=== PATIENT | female | born 1985 | race Asian ===

== ENCOUNTER 2017-03-22 12:46 | Emergency (ER) | payer MEDICAID ==
[~2017-03-22] VITALS: Ht 162.6 cm; Wt 59.0 kg
[2017-03-22 13:00] VITALS: BP 132/54
== END 2017-03-22 17:57 | disposition left against medical advice (07) ==
LOC: ER 12:46
DX: Z53.21 Procedure and treatment not carried out due to patient leaving prior to being seen by health care provider (principal)

== ENCOUNTER 2017-09-12 04:05 | Observation (INO) | payer OTHER, MEDICAID ==
[~2017-09-12] VITALS: Ht 162.6 cm; Wt 69.9 kg
[2017-09-12] MEDS ORDERED: IBUPROFEN 800MG TABLET PO PRN (07:15)
[2017-09-12] MEDS ORDERED: IBUPROFEN 400MG TABLET PO PRN (07:15)
[2017-09-12] MEDS ORDERED: RHO(D) IMMUNE GLOBULIN 300 MCG/SYR IM PRN (07:15)
[2017-09-12] MEDS ORDERED: LANOLIN OINT 0.25 GM TUBE TOP PRN (07:15)
[2017-09-12] MEDS ORDERED: DEXT 5%/LR + PITOCIN 20UNITS/L 1,000 ML IV SCH (07:15)
[2017-09-12] MEDS ORDERED: METHYLERGONOVINE MALEATE 0.2 MG/ML IM PRN (07:30)
[2017-09-12] MEDS ORDERED: PRENATAL VIT/FE FUMARATE/FA TABLET PO SCH (09:00)
[2017-09-12] MEDS ORDERED: PNV1TABL76 MT (23:49)
== END 2017-09-12 07:45 | disposition home or self-care (01) ==
LOC: L&D 04:05
PROVIDERS: ADMIT Specialist; ATTEND Specialist
DX: O46.93 Antepartum hemorrhage, unspecified, third trimester (principal); Z3A.39 39 weeks gestation of pregnancy
CPT/HCPCS: 76815; 76818; 99281; G0378

== ENCOUNTER 2017-09-12 23:02 | Inpatient (IN) | payer OTHER, MEDICAID ==
[~2017-09-12] VITALS: Ht 162.6 cm; Wt 68.9 kg
[2017-09-12] MEDS ORDERED: DEXT 5%/LR + PITOCIN 20UNITS/L 1,000 ML IV SCH (23:49)
[2017-09-12] MEDS ORDERED: PNV1TABL76 MT (23:49)
[2017-09-13] MEDS ORDERED: METHYLERGONOVINE MALEATE 0.2 MG/ML IM PRN
[2017-09-13] MEDS ORDERED: LIDOCAINE HCL 1% 20ML VIAL (Pyxis) INJ INFIL SCH
[2017-09-13] MEDS ORDERED: PENICILLIN G POTASSIUM 5 MMU in DEXT 5% WATER 100 ML IV SCH ×2
[2017-09-13] MEDS ORDERED: MISOPROSTOL 100MCG TABLET VG SCH
[2017-09-13] MEDS ORDERED: CARBOPROST TROMETHAMINE 250 MCG/ML AMPUL IM PRN
[2017-09-13] MEDS ORDERED: NALOXONE HCL 0.4 MG/ML 1ML VIAL IM PRN
[2017-09-13] MEDS ORDERED: BUTORPHANOL TARTRATE 2 MG/ML VIAL IV PRN
[2017-09-13] MEDS: LACTATED RINGERS 1,000 ML IV SCH ×2 (01:05→05:20)
[2017-09-13 01:30] LABS: BASOPHILS % 0.4 % (0.0-2.0); CLARITY URINE TURBID (CLEAR); COLOR URINE YELLOW (YELLOW); EOSINOPHILS % 4.1 % (0.0-5.0); HEMATOCRIT. 37.4 % (36.0-48.0); HEMOGLOBIN. 12.6 g/dL (12.0-16.0); KETONES URINE NEGATIVE (NEGATIVE); LEUKOCYTE ESTERASE URINE TRACE (NEGATIVE); LYMPHOCYTES % 18.5 % (20.0-50.0); MEAN CORPUSCULAR HEMOGLOBIN 29.8 pg (28.0-32.0); MEAN CORPUSCULAR VOLUME 88.4 fL (81.0-99.0); MEAN PLATELET VOLUME 7.9 fl (7.4-10.4); MONOCYTES % 7.2 % (2.0-8.0); NEUTROPHILS % 69.8 % (40.0-76.0); NITRITE URINE NEGATIVE (NEGATIVE); OCCULT BLOOD URINE 3+ (NEGATIVE); PLATELET 307 x1000/uL (130-400); PROTEIN URINE 1+ (NEGATIVE); RED BLOOD CELL COUNT 4.23 mill/uL (4.2-5.4); RED CELL DISTRIBUTION WIDTH 14.5 % (11.6-14.6); SPECIFIC GRAVITY URINE 1.008 (1.005-1.030); UROBILINOGEN URINE 0.2 E.U./dL (0.2-1.0)
[2017-09-13 01:41] LABS: INR 0.9; PARTIAL THROMBOPLASTIN TIME 25.7 sec (23.4-31.0); PROTHROMBIN TIME 9.1 sec (9.4-11.6)
[2017-09-13 01:42] LABS: *AMPHETAMINES SCREEN URINE NEGATIVE (NEGATIVE); *BARBITURATES SCREEN URINE NEGATIVE (NEGATIVE); *BENZODIAZEPINES SCREEN URINE NEGATIVE (NEGATIVE); *COCAINE SCREEN URINE NEGATIVE (NEGATIVE); METHADONE URINE SCREEN NEGATIVE (NEGATIVE); OPIATES URINE SCREEN NEGATIVE (NEGATIVE); PHENCYCLIDINE URINE SCREEN NEGATIVE (NEGATIVE)
[2017-09-13 01:43] LABS: CANNABINOID URINE SCREEN NEGATIVE (NEGATIVE)
[2017-09-13 02:36] LABS: RUBELLA IGG 82.8 IU/mL (4.99-10)
[2017-09-13 02:37] LABS: HEPATITIS B SURFACE ANTIGEN NEGATIVE
[2017-09-13] MEDS: PENICILLIN G POTASSIUM 2.5 MMU in DEXTROSE 5% WATER 50 ML IV SCH ×2 (05:27→09:27)
[2017-09-13] MEDS ORDERED: MORPHINE SULFATE/PF 1MG/ML 10ML AMP ONE (10:16)
[2017-09-13] MEDS ORDERED: OXYTOCIN 10 UNITS/ML 1ML ONE (10:37)
[2017-09-13] MEDS ORDERED: LANOLIN OINT 0.25 GM TUBE TOP PRN (11:15)
[2017-09-13] MEDS ORDERED: IBUPROFEN 400MG TABLET PO PRN (11:15)
[2017-09-13] MEDS ORDERED: INFLUENZA VIRUS VACCINE 0.5ML SYR IM ONE (11:15)
[2017-09-13] MEDS ORDERED: HYDROCODONE/ACETAMINOPHEN 5/325MG TABLET PO PRN (11:15)
[2017-09-13] MEDS ORDERED: TETANUS, DIPHTHERIA, PERTUSSIS VAC/PF 0.5ML (>7YR OLD) IM ONE (11:15)
[2017-09-13] MEDS ORDERED: DIPHENHYDRAMINE 25MG CAPSULE PO PRN (11:15)
[2017-09-13] MEDS ORDERED: BISACODYL 10MG SUPP PR PRN (11:15)
[2017-09-13 11:30] LABS: BG FRACTION INSPIRED OXYGEN 21; BG PCO2 75.3 mmHg (35.0-45.0); BG PH 7.232 (7.350-7.450); BG SAMPLE SITE CORD; BG VENT MODE cprd - UA
[2017-09-13 11:32] LABS: BG BASE EXCESS 0.2 mmol/L (-2.0-2.0); BG FRACTION INSPIRED OXYGEN 21; BG HCO3 ACT 27.2 mmol/L (22.0-26.0); BG PCO2 53.2 mmHg (35.0-45.0); BG PH 7.326 (7.350-7.450); BG PO2 < 30.3 mmHg (75.0-100.0); BG SAMPLE SITE CORD; BG VENT MODE CORD - UV
[2017-09-13] MEDS: ONDANSETRON HCL 4MG/2ML VIAL IV PRN (12:06)
[2017-09-13] MEDS: SIMETHICONE 80MG TABLET CHEW PO SCH ×3 (12:40→21:00)
[2017-09-13 14:30] VITALS: BP 116/70
[2017-09-13 19:15] VITALS: BP 121/69
[2017-09-13] MEDS ORDERED: KETOROLAC 30MG/ML VIAL IV PRN (19:30)
[2017-09-13] MEDS: DOCUSATE SODIUM 100MG CAPSULE PO SCH (21:00)
[2017-09-13 23:30] VITALS: BP 108/70
[2017-09-13] MEDS ORDERED: DEXT 5%/LR + PITOCIN 20UNITS/L 1,000 ML IV SCH (23:50)
[2017-09-14 05:00] VITALS: BP 108/61
[2017-09-14] MEDS: ONDANSETRON HCL 4MG/2ML VIAL IV PRN (05:26)
[2017-09-14 08:23] LABS: BASOPHILS % 0.1 % (0.0-2.0); EOSINOPHILS % 0.3 % (0.0-5.0); HEMATOCRIT. 34.2 % (36.0-48.0); HEMOGLOBIN. 11.3 g/dL (12.0-16.0); LYMPHOCYTES % 12.9 % (20.0-50.0); MEAN CORPUSCULAR HEMOGLOBIN 29.6 pg (28.0-32.0); MEAN CORPUSCULAR VOLUME 89.5 fL (81.0-99.0); MEAN PLATELET VOLUME 7.7 fl (7.4-10.4); MONOCYTES % 8.3 % (2.0-8.0); NEUTROPHILS % 78.4 % (40.0-76.0); PLATELET 281 x1000/uL (130-400); RED BLOOD CELL COUNT 3.82 mill/uL (4.2-5.4); RED CELL DISTRIBUTION WIDTH 14.1 % (11.6-14.6)
[2017-09-14] MEDS: FERROUS SULFATE 325MG TABLET PO SCH ×2 (13:00→17:00)
[2017-09-14 16:00] VITALS: BP 126/80
[2017-09-14 20:00] VITALS: BP 130/83
[2017-09-14] MEDS: DOCUSATE SODIUM 100MG CAPSULE PO SCH (20:58)
[2017-09-14] MEDS: SIMETHICONE 80MG TABLET CHEW PO SCH (20:59)
[2017-09-14] MEDS: HYDROCODONE/ACETAMINOPHEN 5/325MG TABLET PO PRN (21:00)
[2017-09-15] VITALS: BP 118/73
[2017-09-15 04:05] VITALS: BP 134/78
[2017-09-15 08:00] VITALS: BP 125/85
[2017-09-15] MEDS: FERROUS SULFATE 325MG TABLET PO SCH ×3 (09:00→15:32)
[2017-09-15] MEDS: PRENATAL VIT/FE FUMARATE/FA TABLET PO SCH (15:17)
[2017-09-15] MEDS: SIMETHICONE 80MG TABLET CHEW PO SCH ×3 (15:17→21:47)
[2017-09-15] MEDS: HYDROCODONE/ACETAMINOPHEN 5/325MG TABLET PO PRN ×2 (16:35→21:47)
[2017-09-15 20:00] VITALS: BP 123/84
[2017-09-15] MEDS: DOCUSATE SODIUM 100MG CAPSULE PO SCH (21:47)
[2017-09-16] VITALS: BP 122/83
[2017-09-16 05:00] VITALS: BP 128/88
[2017-09-16 08:00] VITALS: BP 108/63
[2017-09-16] MEDS: PRENATAL VIT/FE FUMARATE/FA TABLET PO SCH ×2 (09:00→10:28)
[2017-09-16] MEDS: SIMETHICONE 80MG TABLET CHEW PO SCH (10:28)
[2017-09-16] MEDS: FERROUS SULFATE 325MG TABLET PO SCH (10:28)
== END 2017-09-16 11:20 | disposition home or self-care (01) | DRG 766 ==
LOC: L&D 23:02 → OBSVTOIN 23:02 → 7EST PP/OB 09-13 14:25
PROVIDERS: ADMIT Specialist; ATTEND Specialist
PROC: 10D00Z1 Extraction of Products of Conception, Low, Open Approach (ICD-10-PCS; principal; 2017-09-13 11:05)
DX: O69.1XX0 Labor and delivery complicated by cord around neck, with compression, not applicable or unspecified (principal); O76 Abnormality in fetal heart rate and rhythm complicating labor and delivery; O77.0 Labor and delivery complicated by meconium in amniotic fluid; Z37.0 Single live birth; Z3A.39 39 weeks gestation of pregnancy; Z91.013 Allergy to seafood
CPT/HCPCS: 36415; 36600; 80305; 81003; 82805; 85025; 85610; 85730; 86592; 86703; 86762; 86850; 86900; 87340; 88307; 90686; 90715; G0378; J0595; J1885; J2274; J2405; J2540; J2590; J7030; J7060; J7120

== ENCOUNTER 2018-01-27 17:05 | Emergency (ER) | payer MEDICAID, OTHER ==
[~2018-01-27] VITALS: Ht 162.6 cm; Wt 65.0 kg
[~2018-01-27 17:05] MED LIST: PNV1TABL76 MT
[2018-01-27 21:00] VITALS: BP 124/83
== END 2018-01-27 21:15 | disposition left against medical advice (07) ==
LOC: ER 17:05
DX: R05 Cough (principal); Z53.21 Procedure and treatment not carried out due to patient leaving prior to being seen by health care provider

== ENCOUNTER 2018-02-20 18:42 | Emergency (ER) | payer MEDICAID ==
[~2018-02-20] VITALS: Ht 154.9 cm; Wt 64.0 kg
[2018-02-20 23:30] VITALS: BP 119/76
== END 2018-02-20 23:50 | disposition home or self-care (01) ==
LOC: ER 19:46
DX: F53 Mental and behavioral disorders associated with the puerperium, not elsewhere classified (principal); R05 Cough; Z98.890 Other specified postprocedural states; Z91.013 Allergy to seafood
CPT/HCPCS: 71045; 81025; 99283